=== PATIENT | female | born 1995 | race Caucasian/White ===

== ENCOUNTER 2017-03-08 12:21 | Emergency (ER) | payer OTHER ==
[~2017-03-08] VITALS: Ht 157.5 cm; Wt 68.0 kg
[2017-03-08 12:36] VITALS: BP 133/64; PULSE 84; RESP 17; TEMP 98.5; O2SAT 100
--- NOTE | 2017-03-08 12:51 | PD ---
Physical Exam Date Seen by Provider: Mar 08, 2017 Time Seen by Provider: 12:30 Narrative Patient sent in from [facility] by Dr. Reynoso, was seen earlier for abdominal pain, had CAT scan done which shows fluid-filled fallopian tubes and pelvic cystic mass, possible TOA, sent in for ultrasound for further evaluation. Ultrasound was ordered in the ER for further evaluation. Data Data Last Documented VS Vital Signs Date Time Temp Pulse Resp B/P (MAP) Pulse Ox O2 Delivery O2 Flow Rate FiO2 03/08/17 12:36 98.5 84 17 133/64 (87) 100 Orders Orders Us Pelvis Comp W Dop Transvag (03/08/17 12:44) MDM Medical Record Reviewed: Yes Supervised Visit with MELISSA: No Interpretation(s) Last 24 hours Impressions Abdomen/Pelvis/Transvag US 03/08/17 1244 Signed Impressions: Service Date/Time: Monday, March 08, 2017 12:58 - CONCLUSION: Likely hemorrhagic physiologic cyst involving the right ovary. Ultrasound followup in 6 weeks to document appropriate evolution or resolution would be suggested. Joshua Jordan MD Differential Diagnosis Hemorrhagic cyst versus TOA Narrative Course Ultrasound is showing cystic structure in the right ovary, noted to be more likely to be a hemorrhagic cyst rather than other acute processes. Lab work is fairly unremarkable. She has been given treatment for GC and Chlamydia and my plan would be to continue treatment for possible PID. She also has a UTI which will be treated with antibiotics as well. My plan would be to release her with follow-up to [employer]. Return for any worsening in pain, fevers, new symptoms as needed. The plan has been discussed with her and she states understanding. Diagnosis Primary Impression: Abdominal pain Additional Impressions: Ovarian cyst PID (acute pelvic inflammatory disease) Additional Instruction: Follow-up with your [employer]. Return for worsening pain, fevers, and as needed. Med/Other Pt SpecificInfo: Prescription(s) given Scripts Azithromycin (Zithromax Tri-Roe) 500 Mg Dspk 500 MG PO DAILY for Infection, #1 DSPK 0 Refills Prov: Blanche Lopes MD 03/08/17 Metronidazole (Flagyl) 500 Mg Tab 500 MG PO TID for Infection for 14 Days, TAB 0 Refills Prov: Blanche Lopes MD 03/08/17 Disposition: 01 DISCHARGE HOME Condition: Stable Blanche Lopes MD Mar 08, 2017 12:51
--- NOTE | 2017-03-08 14:23 | RADRPT ---
EXAM DATE/TIME: 03/08/2017 12:58 [facility] COMPARISON: CT ABDOMEN & PELVIS W CONTRAST, March 08, 2017, 9:24. INDICATIONS : Pelvic pain. MEDICAL HISTORY : Gastroesophageal reflux disease. Right lower quadrant pain. SURGICAL HISTORY : None. ENCOUNTER: Initial ACUITY: 1 day PAIN SCORE: 7/10 LOCATION: Bilateral pelvis MEASUREMENTS: UTERUS: 7.7 x 5.0 x 3.9 cm ENDOMETRIAL STRIPE: 7 mm RIGHT OVARY: 6.6 x 5.7 x 5.1 cm LEFT OVARY: 3.6 x 3.1 x 1.8 cm FINDINGS: UTERUS: Small nabothian cysts in the cervix. Otherwise unremarkable RIGHT OVARY: 6.5 cm complex cystic mass which is likely a hemorrhagic physiologic cyst. LEFT OVARY: Ovary contains no mass or significant cystic lesion. MISCELLANEOUS: No free fluid. CONCLUSION: Likely hemorrhagic physiologic cyst involving the right ovary. Ultrasound followup in 6 weeks to docu ment appropriate evolution or resolution would be suggested. Joshua Jordan MD on March 08, 2017 at 14:16 Board Certified Radiologist. This report was verified electronically.
[2017-03-08] MEDS ORDERED: METR-1 PO (14:51)
[2017-03-08] MEDS ORDERED: ZITHTAB2 PO (14:51)
[2017-03-08] MEDS ORDERED: MACR100C2 PO (15:16)
== END 2017-03-08 16:10 | disposition home or self-care (01) ==
LOC: NEPD 12:21
DX: N83.201 Unspecified ovarian cyst, right side (principal); N73.9 Female pelvic inflammatory disease, unspecified
CPT/HCPCS: 74177; 76830; 76856; 80053; 81001; 83690; 84702; 85025; 87081; 87086; 87210; 87491; 87591; 87804; 87880; 93975; 99281; 99284; J0696; J7030; Q9967